=== PATIENT | female | born 1955 | race Caucasian/White ===

== ENCOUNTER → 2020-01-28 | Outpatient (CLI) | payer MEDICARE, OTHER | END | disposition home or self-care (01) | LOC: LABWHC1 08:02 | PROVIDERS: ATTEND Internal Medicine | DX: Z11.59 Encounter for screening for other viral diseases (principal) ==

== ENCOUNTER → 2020-02-01 | Day surgery (SDC) | payer MEDICARE, OTHER ==
[2020-01-28 09:56] VITALS: BMI 33.0
[~2020-02-01] MED LIST: LIDOCAINE 1% (10MG/ML) FOR IV START INTRADERMA PRN; PROPOFOL 10 MG/ML 20 ML VIAL IV ONE
[2020-02-01 08:46] VITALS: RESP 16; TEMP 97.7
[2020-02-01] MEDS: LACTATED RINGERS 1,000 ML IV SCH ×2 (08:54→09:54)
--- NOTE | 2020-02-01 10:01 | P.PCN ---
Date of Procedure: 02/01/20 Description of Procedure: BRIEF HISTORY: Patient is a 64-year-old female presenting for outpatient colonoscopy for evaluation of a history of colon polyps. Denies any change in bowel habits, blood per rectum or abdominal pain. No family history of colon cancer. She has had colon polyps removed on prior colonoscopies. PROCEDURE PERFORMED: Colonoscopy with polypectomy. PREOPERATIVE DIAGNOSIS: Personal history of colon polyps, last colonoscopy 2014. ESTIMATED BLOOD LOSS: Minimal. IV sedation per Anesthesia. PROCEDURE: After informed consent was obtained, the patient, was brought into the endoscopy unit. IV sedation was administered by Anesthesia under continuous monitoring. Digital rectal examination was normal. Initially the Olympus CF-190 flexible video colonoscope was then inserted in the rectum, gradually advanced into the cecum without any difficulty. Careful examination was performed as the scope was gradually being withdrawn. Ileocecal valve and the appendiceal orifice were visualized and appeared normal. Prep was excellent. Mucosa of the cecum, asc ending colon, transverse colon, descending colon, sigmoid colon, and rectum appeared normal. A 6 mm sessile hepatic flexure polyp removed with cold snare polypectomy. 2 diminutive 2 mm sigmoid colon polyps removed with cold forcep polypectomy. Diminutive 3 mm rectal polyp removed with cold forcep polypectomy. Numerous small and large mouth diverticula in the sigmoid colon. Retroflexion was performed in the rectum and no lesions were seen. The patient tolerated the procedure well. IMPRESSION: Sessile hepatic flexure polyp removed with cold snare polypectomy. 3 diminutive polyps removed with cold forceps to from the sigmoid and 1 from the rectum. Moderate sigmoid diverticulosis. RECOMMENDATIONS: Findings of this examination were discussed with the patient. Okay to resume diet. Okay to resume medications. Would recommend high-fiber diet. Await pathology from polypectomy. Would recommend repeat colonoscopy in 5 years.
[2020-02-01 10:19] VITALS: BP 141/74; PULSE 79
== END ==
LOC: ORWHC2ENDO 08:20
PROVIDERS: ATTEND Internal Medicine
DX: D12.3 Benign neoplasm of transverse colon (principal); K63.5 Polyp of colon; K62.1 Rectal polyp; K57.30 Diverticulosis of large intestine without perforation or abscess without bleeding; Z86.010 Personal history of colon polyps; E78.5 Hyperlipidemia, unspecified; J45.909 Unspecified asthma, uncomplicated; F17.210 Nicotine dependence, cigarettes, uncomplicated; Z91.048 Other nonmedicinal substance allergy status; Z79.899 Other long term (current) drug therapy; Z98.890 Other specified postprocedural states; Z90.49 Acquired absence of other specified parts of digestive tract
CPT/HCPCS: 88305; 45380; 45385; J2704

== ENCOUNTER → 2022-02-14 | Outpatient (CLI) | payer MEDICARE, OTHER ==
--- NOTE | 2022-02-14 09:42 | CTL ---
EXAMINATION TYPE: CT Low Dose Lung DATE OF EXAM ORDERED: 02/14/2022 HISTORY: Tobacco use. Lung cancer screening CT DLP: 94.[address] CTDI: 12.8 mGy Automated exposure control for dose reduction was used. SCREENING VISIT: Baseline COMPARISON: None available TECHNIQUE: Low dose computed tomography scan was performed through the chest at 1 mm thick sections a nd reconstructed images in multiple planes at 1 mm and [address] DIAGNOSTIC QUALITY: Satisfactory FINDINGS: LUNG NODULES: Left upper lobe solid [address] image 75. Left upper lobe solid [address] image 68. LUNGS: COPD: Severity: Moderate Fibrosis: Severity: Minimal Lymph nodes: No pathologically enlarged lymph nodes Other findings: Bronchial wall thickening which could be related to chronic bronchitis. Scattered azeem ateral linear pulmonary atelectasis. RIGHT PLEURAL SPACE: Effusion: None Calcification: None Thickening: None Pneumothorax: None LEFT PLEURAL SPACE: Effusion: None Calcification: None Thickening: None Pneumothorax: None HEART: Heart Size: Normal Coronary Calcification: Minimal Pericardial Effusion: None OTHER FINDINGS: Upper abdomen: Hiatal hernia containing portion of the stomach. Bony thorax: Osteopenia. No aggressive bone lesion. Supraclavicular region: None Other: Scattered arterial atherosclerotic calcifications. IMPRESSION: 2 left upper lobe lung nodules measuring up to 3 mm. No other lung nodule or suspicious l mikey lesion. COPD changes. Other incidental findings as described above. CT LUNG RAD AND CT CHEST RECOMMENDATION: Lung-Rad 2 Benign Appearance or Behavior: Continue annual sc reening with LDCT in 12 months. S Modifier (other clinically significant findings): As above
== END | disposition home or self-care (01) ==
LOC: RADCTMAIN 07:44
PROVIDERS: ATTEND Family Medicine
DX: Z12.2 Encounter for screening for malignant neoplasm of respiratory organs (principal); R91.8 Other nonspecific abnormal finding of lung field; K44.9 Diaphragmatic hernia without obstruction or gangrene; Z87.891 Personal history of nicotine dependence
CPT/HCPCS: 71271

== ENCOUNTER → 2023-03-17 | Outpatient (CLI) | payer MEDICARE, OTHER ==
--- NOTE | 2023-03-17 08:31 | CTL ---
EXAMINATION TYPE: CT Low Dose Lung DATE OF EXAM ORDERED: 03/17/2023 COMPARISON: 02/14/2022 HISTORY: . Low Dose CT Lung Screening CT DLP: 104.[address] CTDI: 2.9 mGy IV CONTRAST USED: None. SCREENING VISIT: Second visit COMPARISON: None. TECHNIQUE: Low dose computed tomography scan was performed through the chest at 1 millimeter thick se ctions and reconstructed images in the coronal plane at [address] DIAGNOSTIC QUALITY: Satisfactory FINDINGS: LUNG NODULES: 1. Stable 2 mm solid nodule left upper lobe image 91 sequence 4. 2. Solid nodule measuring 3 mm left upper lobe image 70. LUNGS: COPD: Severity: Moderate Fibrosis: Severity:None Lymph nodes: None Other findings: Scattered basilar parenchymal scarring is redemonstrated. RIGHT PLEURAL SPACE: Effusion: None Calcification: None Thickening: None Pneumothorax: None LEFT PLEURAL SPACE: Effusion: None Calcification: None Thickening: None Pneumothorax: None HEART: Heart Size: Mildly enlarged Coronary calcification: Mild Pericardial effusion: None OTHER FINDINGS: Upper abdomen: No significant abnormality Bony thorax: Degenerative changes Supraclavicular region: No significant abnormality Other: Hiatal hernia. IMPRESSION: 1. Stable benign-appearing nodules. 2. COPD. FOLLOW UP CT CHEST RECOMMENDATION: Follow-up screening in one year CT LUNG RAD: LUNG RAD CATEGORY 2 benign appearance and/or behavior
== END | disposition home or self-care (01) ==
LOC: RADCTMAIN 07:52
PROVIDERS: ATTEND Family Medicine
DX: Z12.2 Encounter for screening for malignant neoplasm of respiratory organs (principal); J44.9 Chronic obstructive pulmonary disease, unspecified; R91.8 Other nonspecific abnormal finding of lung field; F17.210 Nicotine dependence, cigarettes, uncomplicated
CPT/HCPCS: 71271

== ENCOUNTER → 2024-05-07 | Outpatient (CLI) | payer MEDICARE, OTHER ==
--- NOTE | 2024-05-07 15:07 | CTL ---
EXAMINATION TYPE: CT Low Dose Lung DATE OF EXAM: 05/07/2024 2:24 PM CLINICAL INDICATION: Female, 68 years old with history of Z12.2 ENCNTR SCREEN FOR MALIGNANT NEOPLASM OF RESP; Current smoker 1 ppd x 40 years , history of tobacco use. COMPARISON: 03/17/2023 TECHNIQUE: Multiple axial non-contrast scans were obtained from approximately the lung apices through the upper abdomen. Coronal and sagittal reformatted images were obtained. Low dose technique was uti lized. CT DLP: 89.7 mGycm, Automated exposure control for dose reduction was used. CT Contrast: Contrast used: None Oral contrast used: None FINDINGS: ======== Lack of intravenous contrast and low dose technique limits the evaluation of the vascular and soft ti ssue structures. LUNGS: No evidence of pulmonary fibrosis. No evidence of focal consolidation, pneumothorax or pleural effusion. Centrilobular emphysema changes. Nodules: RUL: None. RML: None. RLL: None. ANA: 2 mm series 3 image 1:15.. LLL: None. AIRWAY: Patent and unremarkable. HEART: Size within normal limits. Mild coronary artery atherosclerosis and aortic valve calcification s. MEDIASTINUM: No gross evidence of adenopathy. Moderate hiatal hernia. VASCULATURE: No aortic aneurysm. MUSCULOSKELETAL: No acute osseous abnormalities SOFT TISSUES/LYMPH NODES: Unremarkable. LOWER NECK: No significant findings. UPPER ABDOMEN: No significant findings. IMPRESSION: 1. No clinically significant pulmonary nodules. 2. Moderate emphysema. 3. Moderate hiatal hernia. CT LUNG RAD AND CT CHEST RECOMMENDATION: Lung-Rad 2 Benign Appearance or Behavior: Continue annual sc reening with LDCT in 12 months. S Modifier (other clinically significant findings): None Recommend smoking cessation (if current smoker), or continuation of smoking cessation (if prior smoke r). Annual screening for lung cancer with low-dose computed tomography is recommended in adults ages 55 to 77 years who have a 30 pack-year smoking history and currently smoke or have quit within the pa st 15 years. Screening should be discontinued once a person has not smoked for 15 years or develops a health problem that substantially limits life expectancy or the ability or willingness to have curat za lung surgery. Lung rads 2021 [email or web address]
== END | disposition home or self-care (01) ==
LOC: RADCTMAIN 13:51
PROVIDERS: ATTEND Family Medicine
DX: Z12.2 Encounter for screening for malignant neoplasm of respiratory organs
CPT/HCPCS: 71271